=== PATIENT | male | born 2000 | race African-American/Black ===

== ENCOUNTER 2023-09-08 15:11 | Outpatient (REF) | payer OTHER, SELFPAY ==
--- NOTE | ~2023-09-08 | MR_ITS ---
EXAMINATION: MR HAND WITHOUT CONTRAST, LEFT CLINICAL INFORMATION: Crush injury. Patient reports fall, full weight onto left thumb. COMPARISON: None available. TECHNIQUE: Imaging of the left thumb, multiplanar multisequence imaging, 1.5 Suzette scanner. FINDINGS: First metacarpophalangeal joint: Bone articulation is anatomic. Joint spaces are maintained. Mild edema in the radial/dorsal aspect of the proximal base of the first proximal phalanx, suggesting bone contusion. No acute fracture is seen. Small joint fluid. There is edema signal in the radial collateral ligament, including edema in the mid/proximal portion of the radial collateral ligament, suggesting sprain/partial tear. There is underlying marrow edema at the ligament attachment site in the first metacarpal head. As noted above, there is bone contusion in the radial aspect of the base of the first proximal phalanx. Subjacent soft tissue edema. There is edema signal and ill-definition of the ulna collateral ligament, suggesting sprain/partial tear. No ligament retraction is seen. There is edema in the soft tissue/muscles in the palmar aspect of the first proximal phalanx. Additional findings: First digit flexor and extensor tendons intact. No appreciable tenosynovitis. The remainder of the osseous structures appear intact. The remainder of the visualized tendons appear unremarkable. MR/MR hand LT wo con IMPRESSION: First metacarpophalangeal joint: 1. Abnormal findings suggestive of sprain/partial tear of the radial collateral ligament and the ulna collateral ligament, as detailed above. 2. Bone contusion in the radial aspect of the base of the first proximal phalanx and the first metacarpal head. Additional findings and details as above.
== END 2023-09-08 15:12 | disposition home or self-care (01) ==
LOC: HO.MRI 15:11
PROVIDERS: Visit Provider Family Medicine
DX: S67.02XA Crushing injury of left thumb, initial encounter (principal)
CPT/HCPCS: 73218

== ENCOUNTER 2023-09-19 15:17 | Outpatient (REF) | payer OTHER, SELFPAY ==
--- NOTE | ~2023-09-19 | MR_ITS ---
EXAMINATION: MRI LEFT SHOULDER WITHOUT CONTRAST CLINICAL INFORMATION: Left shoulder pain. Sports injury 4 weeks ago. COMPARISON: None. TECHNIQUE: MRI of the shoulder without contrast is performed on a 1.5 Suzette high-field scanner. Image quality is degraded by patient motion artifact. FINDINGS: ROTATOR CUFF: Intact. No muscle atrophy or fatty infiltration. BICEPS: Normal. CORACOACROMIAL ARCH: The undersurface of the acromion is curved with no subacromial spur. The acromioclavicular joint is normal. LABRUM/CAPSULE: No definite labral tear. There is nonspecific edema within the rotator cuff interval which may be due to a recent injury. GLENOHUMERAL JOINT/MARROW: There is mild cartilage irregularity of the posterior aspect of the glenoid with subchondral edema. No joint effusion. ADDITIONAL FINDINGS: None. MR/MR shoulder LT wo con IMPRESSION: 1. No rotator cuff tear. 2. Nonspecific edema within the rotator cuff interval which may be due to a recent injury. 3. Focal cartilage irregularity and subchondral edema at the posterior aspect of the glenoid. This may represent an osteochondral injury given the clinical history. No joint effusion.
== END 2023-09-19 15:18 | disposition home or self-care (01) ==
LOC: HO.MRI 15:17
PROVIDERS: Visit Provider Family Medicine
DX: M25.512 Pain in left shoulder (principal)
CPT/HCPCS: 73221